=== PATIENT | male | born 1990 | race Caucasian/White ===

== ENCOUNTER 2017-01-07 04:50 | Emergency (ER) | payer MEDICAID, OTHER ==
[~2017-01-07] VITALS: Ht 175.3 cm; Wt 72.0 kg
[2017-01-07 05:00] VITALS: BP 124/81
== END 2017-01-07 10:29 | disposition left against medical advice (07) ==
LOC: ER 05:00
DX: Z53.21 Procedure and treatment not carried out due to patient leaving prior to being seen by health care provider (principal)

== ENCOUNTER 2019-07-07 20:03 | Emergency (ER) | payer MEDICAID, OTHER ==
[~2019-07-07] VITALS: Ht 175.3 cm; Wt 80.0 kg
[2019-07-08] MEDS ORDERED: KETOROLAC 30MG/ML VIAL IV STA (00:25)
[2019-07-08 00:52] LABS: BASOPHILS % 0.2 % (0.0-2.0); EOSINOPHILS % 1.1 % (0.0-5.0); HEMOGLOBIN. 15.5 g/dL (14.0-18.0); LYMPHOCYTES % 19.3 % (20.0-50.0); MEAN CORPUSCULAR HEMOGLOBIN 31.8 pg (28.0-32.0); MEAN CORPUSCULAR VOLUME 90.1 fL (80.0-94.0); MEAN PLATELET VOLUME 9.2 fl (7.4-10.4); MONOCYTES % 3.8 % (2.0-8.0); NEUTROPHILS % 75.6 % (40.0-76.0); PLATELET 265 x1000/uL (130-400); RED BLOOD CELL COUNT 4.88 mill/uL (4.7-6.1)
[2019-07-08 01:05] LABS: CLARITY URINE CLEAR (CLEAR); COLOR URINE YELLOW (YELLOW); KETONES URINE NEGATIVE (NEGATIVE); LEUKOCYTE ESTERASE URINE NEGATIVE (NEGATIVE); NITRITE URINE NEGATIVE (NEGATIVE); OCCULT BLOOD URINE NEGATIVE (NEGATIVE); PH URINE 5.5 (4.5-8.0); PROTEIN URINE NEGATIVE (NEGATIVE); SPECIFIC GRAVITY URINE 1.013 (1.005-1.030); UROBILINOGEN URINE 0.2 E.U./dL (0.2-1.0)
[2019-07-08 01:42] LABS: CHLORIDE 108 mEq/L (98-107)
[2019-07-08 02:46] VITALS: BP 97/49
== END 2019-07-08 02:48 | disposition home or self-care (01) ==
LOC: ER 20:03
DX: N43.3 Hydrocele, unspecified (principal); N50.89 Other specified disorders of the male genital organs; M79.605 Pain in left leg; M79.604 Pain in right leg; F12.10 Cannabis abuse, uncomplicated; F17.200 Nicotine dependence, unspecified, uncomplicated; Z88.6 Allergy status to analgesic agent
CPT/HCPCS: 36415; 76870; 80053; 81003; 83690; 85025; 85610; 93976; 96374; 99284; J1885; Z7610

== ENCOUNTER 2021-01-06 22:32 | Emergency (ER) | payer MEDICAID, OTHER ==
[~2021-01-06] VITALS: Ht 172.7 cm; Wt 92.5 kg
[2021-01-07 00:20] VITALS: BP 133/74
== END 2021-01-07 00:21 | disposition home or self-care (01) ==
LOC: ER 22:32
DX: N39.0 Urinary tract infection, site not specified (principal); F12.10 Cannabis abuse, uncomplicated; Z88.6 Allergy status to analgesic agent
CPT/HCPCS: 93005; 99283

== ENCOUNTER 2021-11-15 23:52 | Emergency (ER) | payer MEDICAID, OTHER ==
[~2021-11-15] VITALS: Ht 175.3 cm; Wt 82.0 kg
[2021-11-16 01:57] LABS: CLARITY URINE CLEAR (CLEAR); COLOR URINE YELLOW (YELLOW); KETONES URINE NEGATIVE (NEGATIVE); LEUKOCYTE ESTERASE URINE NEGATIVE (NEGATIVE); NITRITE URINE NEGATIVE (NEGATIVE); OCCULT BLOOD URINE NEGATIVE (NEGATIVE); PROTEIN URINE NEGATIVE (NEGATIVE); SPECIFIC GRAVITY URINE 1.014 (1.005-1.030); UROBILINOGEN URINE 0.2 E.U./dL (0.2-1.0)
[2021-11-16] MEDS ORDERED: CEFTRIAXONE SODIUM 500 MG/VIAL IM ONE (03:00)
[2021-11-16] MEDS ORDERED: DOXY100C5 MT (03:06)
[2021-11-16 03:16] VITALS: BP 118/72
== END 2021-11-16 03:21 | disposition home or self-care (01) ==
LOC: ER 23:52
DX: N43.3 Hydrocele, unspecified (principal); Z20.2 Contact with and (suspected) exposure to infections with a predominantly sexual mode of transmission; F12.10 Cannabis abuse, uncomplicated; Z88.6 Allergy status to analgesic agent
CPT/HCPCS: 76870; 81003; 93976; 96372; 99284; J0696

== ENCOUNTER 2022-06-19 18:12 | Emergency (ER) | payer MEDICAID, OTHER ==
[~2022-06-19] VITALS: Ht 175.3 cm; Wt 82.0 kg
[~2022-06-19 18:12] MED LIST: DOXY100C5 MT
[2022-06-19 18:18] VITALS: BP 158/99
== END 2022-06-19 23:30 | disposition left against medical advice (07) ==
LOC: ER 18:12
DX: Z53.21 Procedure and treatment not carried out due to patient leaving prior to being seen by health care provider (principal); R42 Dizziness and giddiness; R11.2 Nausea with vomiting, unspecified
CPT/HCPCS: 93005

== ENCOUNTER 2023-10-20 20:35 | Emergency (ER) | payer MEDICAID, OTHER ==
[~2023-10-20] VITALS: Ht 175.3 cm; Wt 93.2 kg
[2023-10-20 20:57] VITALS: O2SAT 99
[2023-10-21 01:53] LABS: CLARITY URINE CLEAR (CLEAR); COLOR URINE YELLOW (YELLOW); GLUCOSE URINE NEGATIVE (NEGATIVE); KETONES URINE NEGATIVE (NEGATIVE); LEUKOCYTE ESTERASE URINE NEGATIVE (NEGATIVE); NITRITE URINE NEGATIVE (NEGATIVE); OCCULT BLOOD URINE NEGATIVE (NEGATIVE); PROTEIN URINE NEGATIVE (NEGATIVE); SPECIFIC GRAVITY URINE 1.025 (1.005-1.030); UROBILINOGEN URINE 0.2 E.U./dL (0.2-1.0)
[2023-10-21 01:53] LABS: EOSINOPHILS % 4.6 % (0.0-5.0); HEMATOCRIT. 44.7 % (42.0-52.0); HEMOGLOBIN. 15.5 g/dL (14.0-18.0); LYMPHOCYTES % 38.9 % (20.0-50.0); MEAN CORPUSCULAR HEMOGLOBIN 30.8 pg (28.0-32.0); MEAN CORPUSCULAR HGB CONC 34.7 g/dL (31.0-37.0); MEAN CORPUSCULAR VOLUME 88.9 fL (80.0-94.0); MEAN PLATELET VOLUME 8.3 fl (7.4-10.4); MONOCYTES % 6.7 % (2.0-8.0); NEUTROPHILS % 48.8 % (40.0-76.0); PLATELET 304 x1000/uL (130-400); RED BLOOD CELL COUNT 5.03 mill/uL (4.7-6.1); RED CELL DISTRIBUTION WIDTH 13.3 % (11.6-14.6); WHITE BLOOD COUNT 11.3 x1000/uL (4.5-11.0)
[2023-10-21 02:09] LABS: ALANINE AMINOTRANSFERASE 32 IU/L (10-49); ASPARTATE AMINOTRANSFERASE 20 IU/L (<34); BILIRUBIN TOTAL 0.4 mg/dL (0.1-1.0); CALCIUM 9.9 mg/dL (8.7-10.4); CARBON DIOXIDE 29 mEq/L (21-32); CHLORIDE 102 mEq/L (98-107); CREATININE 0.9 mg/dL (0.6-1.3); GLUCOSE 98 mg/dL (70-105); POTASSIUM 3.8 mEq/L (3.5-5.1); SODIUM 139 mEq/L (136-145); UREA NITROGEN BLOOD 21 mg/dL (9-23)
[2023-10-21] MEDS: HYDROCODONE/ACETAMINOPHEN 5/325MG TABLET PO STA (02:59)
[2023-10-21] MEDS: ONDANSETRON 4MG ODT PO STA (02:59)
[2023-10-21] MEDS ORDERED: MISCELLANEOUS MEDICATION 1 EA PO ONE (03:45)
[2023-10-21] MEDS ORDERED: MAGNESIUM/ALUMINUM HYDROXIDE/SIMETHICONE 30ML UDC PO ONE (03:45)
[2023-10-21] MEDS ORDERED: IOHEXOL-300 100 ML BOTTLE ONE (04:21)
[2023-10-21] MEDS ORDERED: ACET-2708 MT (05:19)
[2023-10-21] MEDS ORDERED: ONDA4TAB50 MT (05:19)
[2023-10-21] MEDS ORDERED: VISCOUS LIDOCAINE 2% 15 ML UDC MM NR (07:00)
[2023-10-21 07:45] VITALS: BP 136/70; PULSE 68; RESP 18; TEMP 97.7
== END 2023-10-21 08:23 | disposition home or self-care (01) ==
LOC: ER 20:35
DX: R10.9 Unspecified abdominal pain (principal); K59.00 Constipation, unspecified; R11.0 Nausea; F12.10 Cannabis abuse, uncomplicated
CPT/HCPCS: 99285; 80053; 81003; 83690; 85025; 36415; 74177; 76705; Q9967; Q0162; Z7610